=== PATIENT | male | born 1990 | race African-American/Black ===

== ENCOUNTER 2018-06-01 05:02 | Emergency (ER) | payer OTHER ==
[~2018-06-01] VITALS: Ht 170.2 cm; Wt 136.1 kg
[2018-06-01 05:07] VITALS: BP 151/99
[2018-06-01] MEDS ORDERED: HYDROCODONE-ACE15 ML PO (05:14)
[2018-06-01] MEDS ORDERED: AMOXICILLIN875 MG PO (05:14)
== END 2018-06-01 05:20 | disposition home or self-care (01) ==
LOC: M.ERS 05:02
DX: J02.9 Acute pharyngitis, unspecified (principal)

== ENCOUNTER 2019-04-18 10:06 | Emergency (ER) | payer OTHER ==
[~2019-04-18] VITALS: Ht 170.2 cm; Wt 136.1 kg
[~2019-04-18 10:06] MED LIST: AMOXICILLIN875 MG PO; HYDROCODONE-ACE15 ML PO
[2019-04-18 10:38] LABS: URINE BILIRUBIN NEGATIVE (Negative); URINE BLOOD NEGATIVE (Negative); URINE CLARITY CLEAR; URINE COLOR YELLOW; URINE GLUCOSE-RANDOM NEGATIVE (Negative); URINE KETONES NEGATIVE (Negative); URINE LEUKOCYTES-REFLEX NEGATIVE (Negative); URINE NITRITE-REFLEX NEGATIVE (Negative); URINE PROTEIN NEGATIVE (Negative); URINE SPECIFIC GRAVITY >= 1.030 (1.005-1.030); URINE UROBILINOGEN 0.2 E.U./dl (0.2-1.0)
[2019-04-18 11:05] VITALS: BP 148/95
== END 2019-04-18 11:05 | disposition home or self-care (01) ==
LOC: M.ERS 10:06
PROVIDERS: Nurse Practitioner Family
DX: N34.2 Other urethritis (principal)

== ENCOUNTER 2019-06-26 06:22 | Emergency (ER) | payer OTHER ==
[~2019-06-26] VITALS: Ht 175.3 cm; Wt 136.1 kg
[2019-06-26 07:49] LABS: INFLUENZA A ANTIGEN Negative (Negative); INFLUENZA B ANTIGEN Negative (Negative)
[2019-06-26] MEDS ORDERED: TRAMADOL 50 MG50 MG PO (07:54)
[2019-06-26] MEDS ORDERED: IBUPROFEN 800800 MG PO (07:54)
[2019-06-26 08:06] VITALS: BP 140/101
== END 2019-06-26 08:07 | disposition home or self-care (01) ==
LOC: M.ERS 06:22
PROVIDERS: Personal Emergency Response Attendant
DX: J02.8 Acute pharyngitis due to other specified organisms (principal); B97.89 Other viral agents as the cause of diseases classified elsewhere

== ENCOUNTER 2019-07-27 21:57 | Emergency (ER) | payer OTHER ==
[~2019-07-27] VITALS: Ht 172.7 cm; Wt 140.6 kg
[~2019-07-27 21:57] MED LIST changes: +IBUPROFEN 800800 MG PO; +TRAMADOL 50 MG50 MG PO
[2019-07-27 22:05] VITALS: BP 149/97
[2019-07-27] MEDS ORDERED: HYDROCODON-ACE1 EAC7 PO (22:47)
[2019-07-27] MEDS ORDERED: CYCLOBENZAPRINE5 MG PO (22:47)
== END 2019-07-27 23:09 | disposition home or self-care (01) ==
LOC: M.ERS 21:57
DX: S33.5XXA Sprain of ligaments of lumbar spine, initial encounter (principal); X50.1XXA Overexertion from prolonged static or awkward postures, initial encounter; Y93.89 Activity, other specified; Y92.89 Other specified places as the place of occurrence of the external cause; Y99.0 Civilian activity done for income or pay

== ENCOUNTER 2019-09-12 11:39 | Emergency (ER) | payer OTHER ==
[~2019-09-12] VITALS: Ht 172.7 cm; Wt 136.1 kg
[~2019-09-12 11:39] MED LIST changes: +CYCLOBENZAPRINE5 MG PO; +HYDROCODON-ACE1 EAC7 PO
[2019-09-12 13:08] VITALS: BP 148/98
== END 2019-09-12 13:09 | disposition home or self-care (01) ==
LOC: M.ERS 11:39
DX: S61.213A Laceration without foreign body of left middle finger without damage to nail, initial encounter (principal); W45.8XXA Other foreign body or object entering through skin, initial encounter; Y93.89 Activity, other specified; Y92.89 Other specified places as the place of occurrence of the external cause; Y99.8 Other external cause status